=== PATIENT | female | born 1960 | race African-American/Black ===

== ENCOUNTER 2022-02-25 22:11 | Emergency (ER) | payer SELFPAY ==
[~2022-02-25] VITALS: Ht 175.3 cm; Wt 91.0 kg
[2022-02-25] MEDS ORDERED: ONDANSETRON 4MG ODT PO ONE (23:30)
[2022-02-26 05:00] VITALS: BP 135/88
== END 2022-02-26 05:02 | disposition home or self-care (01) ==
LOC: ER 22:11
DX: T40.711A Poisoning by cannabis, accidental (unintentional), initial encounter (principal); F12.988 Cannabis use, unspecified with other cannabis-induced disorder; R11.0 Nausea; R45.0 Nervousness; Y92.89 Other specified places as the place of occurrence of the external cause
CPT/HCPCS: 99285; Q0162